=== PATIENT | female | born 1995 | race Caucasian/White ===

== ENCOUNTER 2017-07-23 14:09 | Emergency (ER) | payer OTHER, BC ==
[~2017-07-23] VITALS: Ht 157.5 cm; Wt 56.7 kg
[~2017-07-23 14:09] MED LIST: Ativan1 MG SL; CIPR500 PO; CLIN300 PO; CLOT10 SUSW; DULO60 PO; HYDACE5 PO; HYDHCL10 PO; IBUP600 PO; LAMICTAL; LAMO25 PO; LORA.5 PO; Lithium Carbon600 MG PO; NAPR500 PO; PRED20 PO; Prazosin HCl5 MG PO; QUET25 PO; RXHYDACE PO; SULTRIDS PO; TOPI25 PO; VENL25 PO; VIBRID PO; VIIBRYD20 MG PO; VILAZODONE 20 MG; [UNRECOGNIZED DRUG - OTHER] SC
[2017-07-23] MEDS ORDERED: Lithium Carbon600 MG PO (14:41)
[2017-07-23] MEDS ORDERED: Bupropion Xl150 MG PO (14:41)
[2017-07-23] MEDS ORDERED: Vanadom350 MG PO (14:41)
[2017-07-23 17:10] LABS: BASOPHILS ABSOLUTE AUTO 0.02 K/mm3 (0.00-0.23); BASOPHILS PERCENT AUTO 0 % (0-2); EOSINOPHILS ABSOLUTE AUTO 0.35 K/mm3 (0.00-0.68); EOSINOPHILS PERCENT AUTO 2 % (0-6); Hematocrit 42.6 % (33.0-51.0); Hemoglobin 14.6 g/dL (11.5-16.0); IMMATURE GRAN ABSOLUTE AUTO 0.08 K/mm3 (0.00-0.10); IMMATURE GRAN PERCENT AUTO 1 % (0-1); LYMPHOCYTES ABSOLUTE AUTO 3.26 K/mm3 (0.84-5.20); LYMPHOCYTES PERCENT AUTO 22 % (21-46); MONOCYTES ABSOLUTE AUTO 1.02 K/mm3 (0.16-1.47); MONOCYTES PERCENT AUTO 7 % (4-13); Mean Corpuscular HGB 31.5 pg (26.0-34.0); Mean Corpuscular HGB Conc 34.3 g/dL (31.5-36.5); Mean Corpuscular Volume 92 fL (80-100); Mean Platelet Volume 9.7 fL (9.1-12.4); NEUTROPHILS ABSOLUTE AUTO 9.98 K/mm3 (1.96-9.15); NEUTROPHILS PERCENT AUTO 68 % (41-73); Platelet Count 373 K/mm3 (150-400); RDW Coefficient Variation 11.8 % (11.7-14.2); Red Blood Cell Count 4.64 M/mm3 (3.80-5.20); White Blood Cell Count 14.71 K/mm3 (4.00-11.30)
[2017-07-23 17:28] LABS: Anion Gap 6 mmol/L (6-16); Blood Urea Nitrogen 17 mg/dL (8-24); Bun/Creatinine Ratio 22.1 (12.0-20.0); CO2, Blood 27 mmol/L (21-32); Calcium, Blood 9.3 mg/dL (8.5-10.1); Chloride, Blood 107 mmol/L (98-108); Creatinine, Blood 0.77 mg/dL (0.40-1.00); Glomerular Filtration Rate >60 (60-); Glucose, Blood 94 mg/dL (70-99); Potassium, Blood 3.3 mmol/L (3.5-5.5); Sodium, Blood 140 mmol/L (136-145)
[2017-07-23 17:37] LABS: Source, Urine Clean Catch
[2017-07-23 17:43] LABS: Appearance, Urine Hazy (Clear); Bilirubin, Urine Neg (Neg); Blood, Urine 1+ (Neg); Color, Urine Yellow (P-Yellow); Glucose Qualitative, Urine Neg (Neg); Ketones, Urine Neg (Neg); Leukocyte Esterase, Urine Neg (Neg); Nitrite, Urine Neg (Neg); Protein, Urine Neg (Neg); Urobilinogen, Urine NORM (Normal)
[2017-07-23 17:52] LABS: Amorphous Light (0-Heavy); Bacteria Mod /hpf; Red Blood Cells, Urine 0-2 /hpf (0-2); Squamous Epithelial Cells Mod /hpf (Few)
[2017-07-23] MEDS ORDERED: Zofran Odt8 MG SL (18:33)
[2017-07-23] MEDS ORDERED: Cephalexin500 MG PO (18:33)
[2017-07-23] MEDS ORDERED: Flagyl500 MG PO (18:33)
== END 2017-07-23 18:38 | disposition home or self-care (01) ==
LOC: ER 14:09
PROVIDERS: Emergency Medicine; Physician Assistant
DX: N76.0 Acute vaginitis (principal); B96.89 Other specified bacterial agents as the cause of diseases classified elsewhere; N39.0 Urinary tract infection, site not specified; R55 Syncope and collapse; Z88.2 Allergy status to sulfonamides; Z79.899 Other long term (current) drug therapy; Z90.89 Acquired absence of other organs
CPT/HCPCS: 36415; 80048; 81001; 81025; 85025; 87086; 93005; 93010; 96365; 96375; 99283; J0696; J2405; J7030

== ENCOUNTER → 2017-08-16 | Outpatient (CLI) | payer OTHER, BC ==
[~2017-08-16] MED LIST changes: +Bupropion Xl150 MG PO; +Cephalexin500 MG PO; +Flagyl500 MG PO; +Vanadom350 MG PO; +Zofran Odt4 MG SL; +Zofran Odt8 MG SL
== END | disposition home or self-care (01) ==
LOC: PLD 08:48 → LAB SHORT 08:48
DX: D22.62 Melanocytic nevi of left upper limb, including shoulder (principal)
CPT/HCPCS: 88305

== ENCOUNTER 2017-08-19 18:15 | Emergency (ER) | payer OTHER, BC ==
[~2017-08-19] VITALS: Ht 157.5 cm; Wt 54.4 kg
[~2017-08-19 18:15] MED LIST changes: -Zofran Odt4 MG SL
[2017-08-19 19:07] LABS: Source, Urine Voided
[2017-08-19 19:13] LABS: Appearance, Urine Clear (Clear); Bilirubin, Urine Neg (Neg); Blood, Urine 2+ (Neg); Color, Urine Yellow (P-Yellow); Glucose Qualitative, Urine Neg (Neg); Ketones, Urine Neg (Neg); Leukocyte Esterase, Urine 1+ (Neg); Nitrite, Urine Neg (Neg); Protein, Urine 1+ (Neg); Urobilinogen, Urine NORM (Normal)
[2017-08-19 19:20] LABS: Bacteria Few /hpf; Squamous Epithelial Cells Many /hpf (Few)
[2017-08-19] MEDS ORDERED: Zofran Odt4 MG SL (20:50)
== END 2017-08-19 20:52 | disposition home or self-care (01) ==
LOC: ER 18:15
PROVIDERS: Nurse Practitioner Family
DX: J11.1 Influenza due to unidentified influenza virus with other respiratory manifestations (principal); Z88.2 Allergy status to sulfonamides; Z79.899 Other long term (current) drug therapy; F31.9 Bipolar disorder, unspecified; F17.200 Nicotine dependence, unspecified, uncomplicated; Z90.49 Acquired absence of other specified parts of digestive tract
CPT/HCPCS: 81001; 87086; 99283

== ENCOUNTER → 2017-10-21 | Outpatient (CLI) | payer OTHER, BC ==
[~2017-10-21] MED LIST changes: +Zofran Odt4 MG SL
== END ==
LOC: LAB 17:44 → LAB SHORT 17:44
DX: N39.0 Urinary tract infection, site not specified (principal)
CPT/HCPCS: 87077; 87086; 87186

== ENCOUNTER → 2017-11-16 | Outpatient (CLI) | payer OTHER, BC ==
[2017-11-16 21:33] LABS: Candida species (DNA Probe) Negative (NEGATIVE); G. vaginalis (DNA Probe) Positive (NEGATIVE); T. vaginalis (DNA Probe) Negative (NEGATIVE)
== END | disposition home or self-care (01) ==
LOC: LAB SHORT 16:21 → LAB 16:21
PROVIDERS: Obstetrics & Gynecology
DX: Z01.419 Encounter for gynecological examination (general) (routine) without abnormal findings (principal); Z11.3 Encounter for screening for infections with a predominantly sexual mode of transmission; N89.8 Other specified noninflammatory disorders of vagina
CPT/HCPCS: 87480; 87510; 87660

== ENCOUNTER → 2018-01-06 | Outpatient (CLI) | payer OTHER, BC ==
[2018-01-06 20:40] LABS: Candida species (DNA Probe) Negative (NEGATIVE); G. vaginalis (DNA Probe) Positive (NEGATIVE); T. vaginalis (DNA Probe) Negative (NEGATIVE)
== END | disposition home or self-care (01) ==
LOC: LAB 10:15 → LAB SHORT 10:15
PROVIDERS: Obstetrics & Gynecology
DX: N89.8 Other specified noninflammatory disorders of vagina (principal)
CPT/HCPCS: 87480; 87510; 87660

== ENCOUNTER → 2018-09-25 | Outpatient (CLI) | payer OTHER, BC ==
[2018-09-28 03:07] LABS: CHLAMYDIA TRACHOMATIS, NAA Negative (Negative); NEISSERIA GONORRHOEAE, NAA Negative (Negative)
== END | disposition home or self-care (01) ==
LOC: LAB 09:30 → LAB SHORT 09:30
PROVIDERS: Advanced Practice Midwife
DX: Z11.3 Encounter for screening for infections with a predominantly sexual mode of transmission (principal)
CPT/HCPCS: 87491; 87591

== ENCOUNTER 2019-02-13 19:23 | Emergency (ER) | payer OTHER, BC ==
[~2019-02-13] VITALS: Ht 157.5 cm; Wt 61.2 kg
[2019-02-13] MEDS ORDERED: Norco 10-325 T1 EACH PO (19:45)
[2019-02-13] MEDS ORDERED: ALPR.5 PO (19:45)
[2019-02-13] MEDS ORDERED: AMLO5 PO (19:45)
[2019-02-13] MEDS ORDERED: LOSA25 PO (19:46)
[2019-02-13] MEDS ORDERED: FOLI1 PO (19:46)
[2019-02-13] MEDS ORDERED: ESZO1 (19:46)
[2019-02-13 20:19] LABS: BASOPHILS ABSOLUTE AUTO 0.06 K/mm3 (0.00-0.23); BASOPHILS PERCENT AUTO 1 % (0-2); EOSINOPHILS ABSOLUTE AUTO 0.32 K/mm3 (0.00-0.68); EOSINOPHILS PERCENT AUTO 4 % (0-6); Hematocrit 39.5 % (33.0-51.0); Hemoglobin 13.4 g/dL (11.5-16.0); IMMATURE GRAN ABSOLUTE AUTO 0.06 K/mm3 (0.00-0.10); IMMATURE GRAN PERCENT AUTO 1 % (0-1); LYMPHOCYTES ABSOLUTE AUTO 2.02 K/mm3 (0.84-5.20); LYMPHOCYTES PERCENT AUTO 24 % (21-46); MONOCYTES PERCENT AUTO 12 % (4-13); Mean Corpuscular HGB 29.9 pg (26.0-34.0); Mean Corpuscular HGB Conc 33.9 g/dL (31.5-36.5); Mean Corpuscular Volume 88 fL (80-100); Mean Platelet Volume 9.7 fL (9.1-12.4); NEUTROPHILS PERCENT AUTO 60 % (41-73); Platelet Count 295 K/mm3 (150-400); RDW Coefficient Variation 11.3 % (11.7-14.2); RDW Standard Deviation 36.4 fL (35.1-46.3); Red Blood Cell Count 4.48 M/mm3 (3.80-5.20); White Blood Cell Count 8.56 K/mm3 (4.00-11.30)
[2019-02-13 20:37] LABS: Alanine Aminotransfer (ALT/SGP 27 U/L (12-78); Albumin, Blood 3.7 g/dL (3.4-5.0); Albumin/Globulin Ratio 0.9 (0.8-1.8); Alk Phos 74 U/L (50-136); Anion Gap 8 mmol/L (6-16); Aspartate Aminotrans (AST/SGOT 17 U/L (12-37); Bilirubin, Total 0.1 mg/dL (0.1-1.0); Blood Urea Nitrogen 4 mg/dL (8-24); Bun/Creatinine Ratio 6.9 (12.0-20.0); CO2, Blood 23 mmol/L (21-32); Calcium, Blood 8.8 mg/dL (8.5-10.1); Chloride, Blood 104 mmol/L (98-108); Creatinine, Blood 0.58 mg/dL (0.40-1.00); Glomerular Filtration Rate >60 (60-); Glucose, Blood 140 mg/dL (70-99); Potassium, Blood 2.9 mmol/L (3.5-5.5); Sodium, Blood 135 mmol/L (136-145); Total Protein, Blood 7.7 g/dL (6.4-8.2)
[2019-02-13] MEDS ORDERED: BENZ100A PO (22:39)
[2019-02-13] MEDS ORDERED: CEPH500 PO (22:39)
== END 2019-02-13 23:32 | disposition home or self-care (01) ==
LOC: ER 19:23
PROVIDERS: Emergency Medicine
DX: J18.1 Lobar pneumonia, unspecified organism (principal); Z88.2 Allergy status to sulfonamides; Z79.899 Other long term (current) drug therapy; F31.9 Bipolar disorder, unspecified; F17.200 Nicotine dependence, unspecified, uncomplicated
CPT/HCPCS: 71046; 80053; 83690; 83735; 85025; 96365; 96375; 99283-25; J2405; J3475

== ENCOUNTER 2019-02-15 22:55 | Emergency (ER) | payer OTHER, BC ==
[~2019-02-15] VITALS: Ht 157.5 cm; Wt 61.2 kg
[~2019-02-15 22:55] MED LIST changes: +ALPR.5 PO; +AMLO5 PO; +BENZ100A PO; +CEPH500 PO; +ESZO1; +FOLI1 PO; +LOSA25 PO; +Norco 10-325 T1 EACH PO
[2019-02-15 23:29] LABS: BASOPHILS ABSOLUTE AUTO 0.06 K/mm3 (0.00-0.23); BASOPHILS PERCENT AUTO 1 % (0-2); EOSINOPHILS ABSOLUTE AUTO 0.46 K/mm3 (0.00-0.68); EOSINOPHILS PERCENT AUTO 5 % (0-6); Hematocrit 40.7 % (33.0-51.0); Hemoglobin 14.2 g/dL (11.5-16.0); IMMATURE GRAN ABSOLUTE AUTO 0.11 K/mm3 (0.00-0.10); IMMATURE GRAN PERCENT AUTO 1 % (0-1); LYMPHOCYTES PERCENT AUTO 33 % (21-46); MONOCYTES ABSOLUTE AUTO 0.85 K/mm3 (0.16-1.47); MONOCYTES PERCENT AUTO 10 % (4-13); Mean Corpuscular HGB 30.4 pg (26.0-34.0); Mean Corpuscular HGB Conc 34.9 g/dL (31.5-36.5); Mean Corpuscular Volume 87 fL (80-100); Mean Platelet Volume 9.6 fL (9.1-12.4); NEUTROPHILS ABSOLUTE AUTO 4.55 K/mm3 (1.96-9.15); NEUTROPHILS PERCENT AUTO 51 % (41-73); Platelet Count 368 K/mm3 (150-400); RDW Coefficient Variation 11.3 % (11.7-14.2); RDW Standard Deviation 36.2 fL (35.1-46.3); Red Blood Cell Count 4.67 M/mm3 (3.80-5.20); White Blood Cell Count 8.93 K/mm3 (4.00-11.30)
[2019-02-15 23:47] LABS: Alanine Aminotransfer (ALT/SGP 21 U/L (12-78); Albumin, Blood 3.8 g/dL (3.4-5.0); Albumin/Globulin Ratio 0.9 (0.8-1.8); Alk Phos 77 U/L (50-136); Anion Gap 6 mmol/L (6-16); Aspartate Aminotrans (AST/SGOT 18 U/L (12-37); Bilirubin, Total 0.2 mg/dL (0.1-1.0); Blood Urea Nitrogen 7 mg/dL (8-24); Bun/Creatinine Ratio 9.8 (12.0-20.0); CO2, Blood 28 mmol/L (21-32); Calcium, Blood 9.5 mg/dL (8.5-10.1); Chloride, Blood 104 mmol/L (98-108); Creatinine, Blood 0.72 mg/dL (0.40-1.00); Globulin, Blood 4.1 g/dL (2.2-4.0); Glomerular Filtration Rate >60 (60-); Glucose, Blood 105 mg/dL (70-99); Potassium, Blood 3.6 mmol/L (3.5-5.5); Sodium, Blood 138 mmol/L (136-145); Total Protein, Blood 7.9 g/dL (6.4-8.2)
[2019-02-16] MEDS ORDERED: Zithromax250 MG PO (01:19)
[2019-02-16] MEDS ORDERED: PROM25 PO (01:20)
== END 2019-02-16 01:45 | disposition home or self-care (01) ==
LOC: ER 22:55
PROVIDERS: Emergency Medicine
DX: J18.9 Pneumonia, unspecified organism (principal); F31.9 Bipolar disorder, unspecified; I10 Essential (primary) hypertension; F17.200 Nicotine dependence, unspecified, uncomplicated; Z88.2 Allergy status to sulfonamides
CPT/HCPCS: 80053; 85025; 96361; 96374; 99283-25; J1885; J7120

== ENCOUNTER 2019-03-12 21:10 | Emergency (ER) | payer OTHER, BC ==
[~2019-03-12] VITALS: Ht 157.5 cm; Wt 67.1 kg
[~2019-03-12 21:10] MED LIST changes: +PROM25 PO; +Zithromax250 MG PO
== END 2019-03-12 22:22 | disposition home or self-care (01) ==
LOC: ER 21:10
DX: L50.0 Allergic urticaria (principal); Z88.2 Allergy status to sulfonamides; Z88.5 Allergy status to narcotic agent; Z79.899 Other long term (current) drug therapy; I10 Essential (primary) hypertension; Z87.891 Personal history of nicotine dependence
CPT/HCPCS: 96374; 96375; 99283-25; J1200; J2930

== ENCOUNTER → 2019-04-16 | Outpatient (CLI) | payer OTHER, BC | LOC: LAB 17:25 → LAB SHORT 17:25 | DX: E04.1 Nontoxic single thyroid nodule (principal) | CPT/HCPCS: 84443 ==

== ENCOUNTER 2019-09-29 17:47 | Emergency (ER) | payer OTHER, BC ==
[~2019-09-29] VITALS: Ht 157.5 cm; Wt 63.5 kg
[2019-09-29] MEDS ORDERED: Baclofen10 MG PO (18:43)
== END 2019-09-29 18:58 | disposition home or self-care (01) ==
LOC: ER 17:47
DX: M62.830 Muscle spasm of back (principal); M62.838 Other muscle spasm; I10 Essential (primary) hypertension; Z88.2 Allergy status to sulfonamides; Z88.5 Allergy status to narcotic agent; Z79.899 Other long term (current) drug therapy; V43.62XA Car passenger injured in collision with other type car in traffic accident, initial encounter
CPT/HCPCS: 72040; 72100; 99283-25

== ENCOUNTER → 2020-05-19 | Outpatient (CLI) | payer OTHER, BC ==
[~2020-05-19] MED LIST changes: +Baclofen10 MG PO
[2020-05-19 16:15] LABS: Microalbumin, Urine Quant. 6.59 mg/L (0.000-20.000); Protein, Urine Quantitative 6.4 mg/dL (0.0-11.9)
== END ==
LOC: LAB 09:07 → LAB SHORT 09:07
PROVIDERS: Internal Medicine Nephrology
DX: E55.9 Vitamin D deficiency, unspecified (principal); N25.81 Secondary hyperparathyroidism of renal origin; E78.00 Pure hypercholesterolemia, unspecified; N18.1 Chronic kidney disease, stage 1; D63.1 Anemia in chronic kidney disease; R80.9 Proteinuria, unspecified; R76.9 Abnormal immunological finding in serum, unspecified; R94.5 Abnormal results of liver function studies; R94.6 Abnormal results of thyroid function studies
CPT/HCPCS: 81050; 82043; 82570; 84156

== ENCOUNTER → 2020-06-26 | Outpatient (CLI) | payer OTHER ==
[~2020-06-26] MED LIST changes: +ASPI81CH PO; +BUSP10 PO; +DESV50 PO; +Folic Acid0.8 MG PO; +LABE100 PO; +LITH300C PO; +ONDA4ODT MM; +OXYC5 PO; +POTCHL20ER PO; +PRED10 PO; +PRENATAL TABLE1 EAC2 PO; +PROCARDIA PO; +TRAZ50 PO; +VITAMIN B-625 MG PO
[2020-06-28 09:10] LABS: HPV 16 Negative (Negative); HPV 18 Negative (Negative); HPV OTHER HR TYPES Positive (Negative)
== END | disposition home or self-care (01) ==
LOC: LAB SHORT 10:27 → LAB 10:27
PROVIDERS: Obstetrics & Gynecology
DX: Z01.419 Encounter for gynecological examination (general) (routine) without abnormal findings (principal)
CPT/HCPCS: 87624; 87625; G0123

== ENCOUNTER → 2020-06-26 | Outpatient (CLI) | payer OTHER ==
[2020-06-26 15:54] LABS: Source, Urine Clean Catch
[2020-06-26 16:49] LABS: Appearance, Urine Clear (Clear); Bilirubin, Urine Neg (Neg); Blood, Urine Neg (Neg); Glucose Qualitative, Urine 1+ (Neg); Ketones, Urine 1+ (Neg); Leukocyte Esterase, Urine 1+ (Neg); Nitrite, Urine Neg (Neg); Protein, Urine Neg (Neg); Urobilinogen, Urine NORM (Normal)
[2020-06-26 17:05] LABS: Color, Urine Pale Yellow (P-Yellow)
[2020-06-26 17:07] LABS: Bacteria Few /hpf; Red Blood Cells, Urine 0-2 /hpf (0-2); Squamous Epithelial Cells Few /hpf (Few)
== END | disposition home or self-care (01) ==
LOC: LAB 15:52 → LAB SHORT 15:52
PROVIDERS: Obstetrics & Gynecology
DX: O09.90 Supervision of high risk pregnancy, unspecified, unspecified trimester (principal)
CPT/HCPCS: 81001; 87086

== ENCOUNTER 2020-07-08 20:26 | Emergency (ER) | payer OTHER ==
[~2020-07-08] VITALS: Ht 157.5 cm; Wt 62.1 kg
[~2020-07-08 20:26] MED LIST changes: -ASPI81CH PO; -BUSP10 PO; -DESV50 PO; -Folic Acid0.8 MG PO; -LABE100 PO; -LITH300C PO; -ONDA4ODT MM; -OXYC5 PO; -POTCHL20ER PO; -PRED10 PO; -PRENATAL TABLE1 EAC2 PO; -PROCARDIA PO; -TRAZ50 PO; -VITAMIN B-625 MG PO
[2020-07-08] MEDS ORDERED: VITAMIN B-625 MG PO (20:50)
[2020-07-08 21:12] LABS: BASOPHILS ABSOLUTE AUTO 0.05 K/mm3 (0.00-0.23); BASOPHILS PERCENT AUTO 0 % (0-2); EOSINOPHILS ABSOLUTE AUTO 0.23 K/mm3 (0.00-0.68); EOSINOPHILS PERCENT AUTO 1 % (0-6); Hematocrit 37.4 % (33.0-51.0); Hemoglobin 12.5 g/dL (11.5-16.0); IMMATURE GRAN ABSOLUTE AUTO 0.12 K/mm3 (0.00-0.10); IMMATURE GRAN PERCENT AUTO 1 % (0-1); LYMPHOCYTES ABSOLUTE AUTO 2.79 K/mm3 (0.84-5.20); LYMPHOCYTES PERCENT AUTO 16 % (21-46); MONOCYTES PERCENT AUTO 6 % (4-13); Mean Corpuscular HGB 28.9 pg (26.0-34.0); Mean Corpuscular HGB Conc 33.4 g/dL (31.5-36.5); Mean Corpuscular Volume 86 fL (80-100); Mean Platelet Volume 9.8 fL (9.1-12.4); NEUTROPHILS ABSOLUTE AUTO 12.97 K/mm3 (1.96-9.15); NEUTROPHILS PERCENT AUTO 76 % (41-73); Platelet Count 296 K/mm3 (150-400); RDW Coefficient Variation 11.3 % (11.7-14.2); RDW Standard Deviation 35.8 fL (35.1-46.3); Red Blood Cell Count 4.33 M/mm3 (3.80-5.20); White Blood Cell Count 17.16 K/mm3 (4.00-11.30)
[2020-07-08 21:29] LABS: Alanine Aminotransfer (ALT/SGP 13 U/L (12-78); Albumin, Blood 3.4 g/dL (3.4-5.0); Albumin/Globulin Ratio 0.9 (0.8-1.8); Alk Phos 54 U/L (50-136); Anion Gap 7 mmol/L (6-16); Aspartate Aminotrans (AST/SGOT 5 U/L (12-37); Bilirubin, Total 0.2 mg/dL (0.1-1.0); Blood Urea Nitrogen 9 mg/dL (8-24); Bun/Creatinine Ratio 14.4 (12.0-20.0); CO2, Blood 28 mmol/L (21-32); Calcium, Blood 9.6 mg/dL (8.5-10.1); Chloride, Blood 103 mmol/L (98-108); Creatinine, Blood 0.62 mg/dL (0.40-1.00); Globulin, Blood 3.9 g/dL (2.2-4.0); Glomerular Filtration Rate >60 (60-); Glucose, Blood 100 mg/dL (70-99); Sodium, Blood 138 mmol/L (136-145); Total Protein, Blood 7.3 g/dL (6.4-8.2)
[2020-07-08] MEDS ORDERED: POTCHL20ER PO (21:54)
[2020-07-08] MEDS ORDERED: PROM25 PO (21:54)
== END 2020-07-08 22:21 | disposition home or self-care (01) ==
LOC: ER 20:26
PROVIDERS: Physician Assistant
DX: O21.1 Hyperemesis gravidarum with metabolic disturbance (principal); O16.2 Unspecified maternal hypertension, second trimester; Z3A.14 14 weeks gestation of pregnancy
CPT/HCPCS: 36415; 80053; 85025; 96374; 99284-25; A9270; J2550; J7030

== ENCOUNTER 2020-08-07 11:10 | Emergency (ER) | payer OTHER ==
[~2020-08-07] VITALS: Ht 157.5 cm; Wt 65.8 kg
[~2020-08-07 11:10] MED LIST changes: +ASPI81CH PO; +Folic Acid0.8 MG PO; +LABE100 PO; +LITH300C PO; +POTCHL20ER PO; +PRED10 PO; +PRENATAL TABLE1 EAC2 PO; +VITAMIN B-625 MG PO
[2020-08-07 11:56] LABS: BASOPHILS ABSOLUTE AUTO 0.06 K/mm3 (0.00-0.23); BASOPHILS PERCENT AUTO 0 % (0-2); EOSINOPHILS ABSOLUTE AUTO 0.25 K/mm3 (0.00-0.68); EOSINOPHILS PERCENT AUTO 1 % (0-6); Hematocrit 37.5 % (33.0-51.0); Hemoglobin 12.6 g/dL (11.5-16.0); IMMATURE GRAN ABSOLUTE AUTO 0.25 K/mm3 (0.00-0.10); IMMATURE GRAN PERCENT AUTO 1 % (0-1); LYMPHOCYTES ABSOLUTE AUTO 2.36 K/mm3 (0.84-5.20); LYMPHOCYTES PERCENT AUTO 14 % (21-46); MONOCYTES ABSOLUTE AUTO 1.04 K/mm3 (0.16-1.47); MONOCYTES PERCENT AUTO 6 % (4-13); Mean Corpuscular HGB 29.3 pg (26.0-34.0); Mean Corpuscular HGB Conc 33.6 g/dL (31.5-36.5); Mean Corpuscular Volume 87 fL (80-100); Mean Platelet Volume 9.9 fL (9.1-12.4); NEUTROPHILS ABSOLUTE AUTO 13.43 K/mm3 (1.96-9.15); NEUTROPHILS PERCENT AUTO 77 % (41-73); Platelet Count 333 K/mm3 (150-400); RDW Coefficient Variation 12.4 % (11.7-14.2); RDW Standard Deviation 38.8 fL (35.1-46.3); White Blood Cell Count 17.39 K/mm3 (4.00-11.30)
[2020-08-07 12:35] LABS: Alanine Aminotransfer (ALT/SGP 17 U/L (12-78); Albumin, Blood 3.4 g/dL (3.4-5.0); Albumin/Globulin Ratio 0.8 (0.8-1.8); Alk Phos 57 U/L (50-136); Anion Gap 6 mmol/L (6-16); Aspartate Aminotrans (AST/SGOT 20 U/L (12-37); Bilirubin, Total 0.4 mg/dL (0.1-1.0); Blood Urea Nitrogen 7 mg/dL (8-24); Bun/Creatinine Ratio 11.7 (12.0-20.0); CO2, Blood 25 mmol/L (21-32); Chloride, Blood 106 mmol/L (98-108); Globulin, Blood 4.1 g/dL (2.2-4.0); Glomerular Filtration Rate >60 (60-); Glucose, Blood 83 mg/dL (70-99); Potassium, Blood 3.5 mmol/L (3.5-5.5); Sodium, Blood 137 mmol/L (136-145); Total Protein, Blood 7.5 g/dL (6.4-8.2)
[2020-08-07 12:38] LABS: Beta HCG, Quantitative, Serum 18421 mIU/mL (0-3)
[2020-08-09] MEDS ORDERED: PROCARDIA PO (09:45)
[2020-08-09] MEDS ORDERED: ONDA4ODT MM (09:45)
== END 2020-08-07 13:51 | disposition home or self-care (01) ==
LOC: ER 11:10
PROVIDERS: Emergency Medicine
DX: O21.9 Vomiting of pregnancy, unspecified (principal); O99.891 Other specified diseases and conditions complicating pregnancy; R51.9 Headache, unspecified; Z3A.19 19 weeks gestation of pregnancy; Z88.2 Allergy status to sulfonamides; Z88.5 Allergy status to narcotic agent; Z79.899 Other long term (current) drug therapy; Z79.82 Long term (current) use of aspirin; Z87.891 Personal history of nicotine dependence
CPT/HCPCS: 36415; 80053; 84702; 85025; 86900; 86901; 99284

== ENCOUNTER 2020-08-09 09:17 | Observation (INO) | payer OTHER ==
[~2020-08-09] VITALS: Ht 157.5 cm; Wt 65.0 kg
[2020-08-09] MEDS ORDERED: ONDA4ODT MM ×2 (09:45)
[2020-08-09] MEDS ORDERED: PROCARDIA PO ×2 (09:45)
--- NOTE | 2020-08-09 12:31 | NUR ---
PT UP AMBULATING THROUGH HALLWAY AND OUTSIDE FOR FRESH AIR.
--- NOTE | 2020-08-09 15:04 | NUR ---
pt heading outside for another walk
--- NOTE | 2020-08-09 15:45 | NUR ---
PT BACK OUTSIDE, STATES SHE IS GOING TO GET FOOD HER FRIEND BROUGHT HER.
--- NOTE | 2020-08-09 16:00 | NUR ---
FHTS DOPPLERED AT 145BPM, MOVEMENT HEARD.
[2020-08-09 16:30] LABS: Influenza A, PCR Negative (NEGATIVE); SARS-Cov-2 (COVID-19) PCR, MMC Negative (NEGATIVE)
--- NOTE | 2020-08-09 16:30 | NUR ---
pt back from getting food from her friend/walking. States she did eat part of a sandwich while she was out there. Will check [facility] CBG before she eats next time.
[2020-08-09 16:31] LABS: Influenza B, PCR Negative (NEGATIVE); Resp Syncytial Virus, PCR Negative (NEGATIVE)
--- NOTE | 2020-08-10 10:55 | NUR ---
PT GIVEN WRITTEN AND VERBAL D/C INSTRUCTIONS. EDUCATED ON NEW RX ORDERS AND 'S ORDER TO ONLY CHECK BP ONCE DAILY, UNLESS SYMPTOMATIC. EDUCATION PROVIDED ON HTN IN PG. PT STATES UNDERSTANDING. NEW RX CALLED INTO [facility]. PT TO FOLLOW UP WITH IN OFFICE SCHEDULED, BUT WILL CALL OFFICE IF BPs REMAIN HIGHER THAN PARAMATERS. 24HOUR URINE TO LAB. TO F/U ON RESULTS ON OUTPT BASIS.
[2020-08-10 12:14] LABS: Protein, Urine Quantitative 5.4 mg/dL (0.0-11.9)
[2020-08-10 12:19] LABS: Creatinine Urine 15.9 mg/dL (27.00-270.00)
[2020-08-13 13:11] LABS: DOPAMINE, URINE 23 ug/L (Undefined)
[2020-08-13 17:11] LABS: METANEPHRINE, UR <10 ug/L (Undefined)
[2020-08-27 01:08] LABS: ALDOS/RENIN RATIO 1.5 (0.0-30.0)
== END 2020-08-10 10:53 | disposition home or self-care (01) ==
LOC: BC 09:17
PROVIDERS: ADMIT Family Medicine
DX: O10.212 Pre-existing hypertensive chronic kidney disease complicating pregnancy, second trimester (principal); O24.912 Unspecified diabetes mellitus in pregnancy, second trimester; O99.342 Other mental disorders complicating pregnancy, second trimester; I12.9 Hypertensive chronic kidney disease with stage 1 through stage 4 chronic kidney disease, or unspecified chronic kidney disease; N18.1 Chronic kidney disease, stage 1; F31.9 Bipolar disorder, unspecified; E55.9 Vitamin D deficiency, unspecified; Z3A.18 18 weeks gestation of pregnancy; Z87.891 Personal history of nicotine dependence; Z20.822 Contact with and (suspected) exposure to COVID-19
CPT/HCPCS: 0241U; 36415; 81050; 82088; 82384; 82530; 82533; 82570; 82947; 83835; 84156; 84244; 84443; A9270; G0378

== ENCOUNTER 2020-10-29 21:44 | Inpatient (IN) | payer OTHER ==
[~2020-10-29] VITALS: Ht 157.5 cm; Wt 73.1 kg
[~2020-10-29 21:44] MED LIST changes: +ONDA4ODT MM; +PROCARDIA PO
[2020-10-29 22:31] LABS: BASOPHILS ABSOLUTE AUTO 0.11 K/mm3 (0.00-0.23); BASOPHILS PERCENT AUTO 1 % (0-2); EOSINOPHILS ABSOLUTE AUTO 0.45 K/mm3 (0.00-0.68); EOSINOPHILS PERCENT AUTO 2 % (0-6); Hematocrit 31.4 % (33.0-51.0); Hemoglobin 10.4 g/dL (11.5-16.0); IMMATURE GRAN ABSOLUTE AUTO 1.01 K/mm3 (0.00-0.10); IMMATURE GRAN PERCENT AUTO 5 % (0-1); LYMPHOCYTES ABSOLUTE AUTO 3.15 K/mm3 (0.84-5.20); LYMPHOCYTES PERCENT AUTO 15 % (21-46); MONOCYTES ABSOLUTE AUTO 1.77 K/mm3 (0.16-1.47); MONOCYTES PERCENT AUTO 9 % (4-13); Mean Corpuscular HGB 28.6 pg (26.0-34.0); Mean Corpuscular HGB Conc 33.1 g/dL (31.5-36.5); Mean Corpuscular Volume 86 fL (80-100); Mean Platelet Volume 10.2 fL (9.1-12.4); NEUTROPHILS ABSOLUTE AUTO 14.03 K/mm3 (1.96-9.15); NEUTROPHILS PERCENT AUTO 68 % (41-73); Platelet Count 291 K/mm3 (150-400); Red Blood Cell Count 3.64 M/mm3 (3.80-5.20); White Blood Cell Count 20.52 K/mm3 (4.00-11.30)
[2020-10-29 22:54] LABS: Alanine Aminotransfer (ALT/SGP 18 U/L (12-78); Albumin, Blood 2.8 g/dL (3.4-5.0); Albumin/Globulin Ratio 0.7 (0.8-1.8); Alk Phos 137 U/L (50-136); Anion Gap 8 mmol/L (6-16); Aspartate Aminotrans (AST/SGOT 9 U/L (12-37); Bilirubin, Total 0.2 mg/dL (0.1-1.0); Blood Urea Nitrogen 9 mg/dL (8-24); Bun/Creatinine Ratio 14.3 (12.0-20.0); CO2, Blood 23 mmol/L (21-32); Calcium, Blood 8.6 mg/dL (8.5-10.1); Chloride, Blood 108 mmol/L (98-108); Creatinine, Blood 0.63 mg/dL (0.40-1.00); Glomerular Filtration Rate >60 (60-); Glucose, Blood 104 mg/dL (70-99); Potassium, Blood 3.5 mmol/L (3.5-5.5); Sodium, Blood 139 mmol/L (136-145); Total Protein, Blood 6.8 g/dL (6.4-8.2); Troponin I <0.015 ng/mL (0.000-0.040)
[2020-10-29 23:45] LABS: Influenza A, PCR NEGATIVE (NEGATIVE); Influenza B, PCR NEGATIVE (NEGATIVE); Resp Syncytial Virus, PCR NEGATIVE (NEGATIVE); SARS-Cov-2 (COVID-19) PCR, MMC NEGATIVE (NEGATIVE)
[2020-10-30 05:46] LABS: BASOPHILS ABSOLUTE AUTO 0.12 K/mm3 (0.00-0.23); BASOPHILS PERCENT AUTO 1 % (0-2); EOSINOPHILS ABSOLUTE AUTO 0.43 K/mm3 (0.00-0.68); EOSINOPHILS PERCENT AUTO 3 % (0-6); Hematocrit 29.7 % (33.0-51.0); Hemoglobin 9.8 g/dL (11.5-16.0); IMMATURE GRAN ABSOLUTE AUTO 0.86 K/mm3 (0.00-0.10); IMMATURE GRAN PERCENT AUTO 5 % (0-1); LYMPHOCYTES ABSOLUTE AUTO 2.23 K/mm3 (0.84-5.20); LYMPHOCYTES PERCENT AUTO 13 % (21-46); MONOCYTES ABSOLUTE AUTO 1.42 K/mm3 (0.16-1.47); MONOCYTES PERCENT AUTO 9 % (4-13); Mean Corpuscular HGB 29.1 pg (26.0-34.0); Mean Corpuscular Volume 88 fL (80-100); NEUTROPHILS ABSOLUTE AUTO 11.53 K/mm3 (1.96-9.15); NEUTROPHILS PERCENT AUTO 70 % (41-73); Platelet Count 261 K/mm3 (150-400); RDW Coefficient Variation 12.1 % (11.7-14.2); RDW Standard Deviation 38.6 fL (35.1-46.3); Red Blood Cell Count 3.37 M/mm3 (3.80-5.20); White Blood Cell Count 16.59 K/mm3 (4.00-11.30)
--- NOTE | 2020-10-30 09:00 | NUR ---
ASSUMED CARE AT 073. PATIENT RESTING BUT WOKE WHEN I ENTERED ROOM. VSS. ASSESSMENT UNCHANGED FROM PREVIOUS SHIFT. PLAN OF CARE DISCUSSED WITH PATIENT
--- NOTE | 2020-10-30 10:22 | NUR ---
Echocardiogram completed.
== END 2020-10-30 12:25 | disposition home or self-care (01) | DRG 832 ==
LOC: OBS 21:44 → BC 21:44 → OBS 10-30 00:08 → BC 10-30 00:11
PROVIDERS: ADMIT Obstetrics & Gynecology
PROC: 4A1HX4Z Monitoring of Products of Conception, Cardiac Electrical Activity, External Approach (ICD-10-PCS; principal; 2020-10-30)
DX: O10.913 Unspecified pre-existing hypertension complicating pregnancy, third trimester (principal); N25.81 Secondary hyperparathyroidism of renal origin; Z3A.30 30 weeks gestation of pregnancy; Z20.822 Contact with and (suspected) exposure to COVID-19; O24.419 Gestational diabetes mellitus in pregnancy, unspecified control; O99.343 Other mental disorders complicating pregnancy, third trimester; F31.9 Bipolar disorder, unspecified; O99.283 Endocrine, nutritional and metabolic diseases complicating pregnancy, third trimester; N18.1 Chronic kidney disease, stage 1; F60.3 Borderline personality disorder; R06.02 Shortness of breath; R07.89 Other chest pain; O99.891 Other specified diseases and conditions complicating pregnancy; I12.9 Hypertensive chronic kidney disease with stage 1 through stage 4 chronic kidney disease, or unspecified chronic kidney disease; F43.10 Post-traumatic stress disorder, unspecified; E55.9 Vitamin D deficiency, unspecified; Z90.89 Acquired absence of other organs; Z87.891 Personal history of nicotine dependence; Z88.5 Allergy status to narcotic agent; Z88.2 Allergy status to sulfonamides
CPT/HCPCS: 0241U; 36415; 59025; 71046; 80053; 82947; 83880; 84484; 85025; 93005; 93010; 93306; A9270

== ENCOUNTER → 2020-10-30 | Outpatient (CLI) | payer OTHER | LOC: LAB SHORT 08:59 | PROVIDERS: Obstetrics & Gynecology | DX: R80.9 Proteinuria, unspecified (principal) | CPT/HCPCS: 81050; 84156 ==

== ENCOUNTER → 2020-11-05 | Outpatient (CLI) | payer OTHER | END | disposition home or self-care (01) | LOC: LAB SHORT 11:00 | DX: O99.891 Other specified diseases and conditions complicating pregnancy (principal) | CPT/HCPCS: 87081; 87150 ==

== ENCOUNTER 2020-12-09 16:15 | Inpatient (IN) | payer OTHER ==
[~2020-12-09] VITALS: Ht 157.5 cm; Wt 75.6 kg
[2020-12-09] MEDS ORDERED: LABE100 PO (16:47)
[2020-12-09] MEDS ORDERED: LITH300C PO (16:47)
[2020-12-09] MEDS ORDERED: DESV50 PO (16:49)
[2020-12-09 17:23] LABS: BASOPHILS ABSOLUTE AUTO 0.06 K/mm3 (0.00-0.23); BASOPHILS PERCENT AUTO 0 % (0-2); EOSINOPHILS ABSOLUTE AUTO 0.33 K/mm3 (0.00-0.68); EOSINOPHILS PERCENT AUTO 2 % (0-6); Hematocrit 31.8 % (33.0-51.0); Hemoglobin 10.4 g/dL (11.5-16.0); IMMATURE GRAN ABSOLUTE AUTO 0.29 K/mm3 (0.00-0.10); IMMATURE GRAN PERCENT AUTO 2 % (0-1); LYMPHOCYTES ABSOLUTE AUTO 1.97 K/mm3 (0.84-5.20); LYMPHOCYTES PERCENT AUTO 13 % (21-46); MONOCYTES ABSOLUTE AUTO 1.42 K/mm3 (0.16-1.47); MONOCYTES PERCENT AUTO 9 % (4-13); Mean Corpuscular HGB 26.8 pg (26.0-34.0); Mean Corpuscular HGB Conc 32.7 g/dL (31.5-36.5); Mean Corpuscular Volume 82 fL (80-100); Mean Platelet Volume 10.5 fL (9.1-12.4); NEUTROPHILS ABSOLUTE AUTO 11.16 K/mm3 (1.96-9.15); NEUTROPHILS PERCENT AUTO 73 % (41-73); Platelet Count 322 K/mm3 (150-400); RDW Coefficient Variation 12.9 % (11.7-14.2); RDW Standard Deviation 38.7 fL (35.1-46.3); Red Blood Cell Count 3.88 M/mm3 (3.80-5.20); White Blood Cell Count 15.23 K/mm3 (4.00-11.30)
[2020-12-09] MEDS ORDERED: TRAZ50 PO (17:37)
[2020-12-09 17:38] LABS: SARS-Cov-2 (COVID-19) PCR, MMC NEGATIVE (NEGATIVE)
[2020-12-09] MEDS ORDERED: BUSP10 PO (17:38)
[2020-12-09 18:50] LABS: Alanine Aminotransfer (ALT/SGP 18 U/L (12-78); Albumin, Blood 2.7 g/dL (3.4-5.0); Albumin/Globulin Ratio 0.7 (0.8-1.8); Alk Phos 277 U/L (50-136); Anion Gap 7 mmol/L (6-16); Aspartate Aminotrans (AST/SGOT 13 U/L (12-37); Bilirubin, Total 0.2 mg/dL (0.1-1.0); Blood Urea Nitrogen 13 mg/dL (8-24); Bun/Creatinine Ratio 14.4 (12.0-20.0); CO2, Blood 22 mmol/L (21-32); Calcium, Blood 9.2 mg/dL (8.5-10.1); Chloride, Blood 108 mmol/L (98-108); Globulin, Blood 3.9 g/dL (2.2-4.0); Glomerular Filtration Rate >60 (60-); Glucose, Blood 81 mg/dL (70-99); Potassium, Blood 3.6 mmol/L (3.5-5.5); Sodium, Blood 137 mmol/L (136-145); Total Protein, Blood 6.6 g/dL (6.4-8.2)
[2020-12-10 10:52] LABS: BASOPHILS ABSOLUTE AUTO 0.06 K/mm3 (0.00-0.23); BASOPHILS PERCENT AUTO 1 % (0-2); EOSINOPHILS ABSOLUTE AUTO 0.34 K/mm3 (0.00-0.68); EOSINOPHILS PERCENT AUTO 3 % (0-6); Hemoglobin 10.5 g/dL (11.5-16.0); IMMATURE GRAN ABSOLUTE AUTO 0.27 K/mm3 (0.00-0.10); IMMATURE GRAN PERCENT AUTO 2 % (0-1); LYMPHOCYTES ABSOLUTE AUTO 1.69 K/mm3 (0.84-5.20); LYMPHOCYTES PERCENT AUTO 13 % (21-46); MONOCYTES ABSOLUTE AUTO 1.07 K/mm3 (0.16-1.47); MONOCYTES PERCENT AUTO 8 % (4-13); Mean Corpuscular HGB Conc 32.8 g/dL (31.5-36.5); Mean Corpuscular Volume 82 fL (80-100); Mean Platelet Volume 10.6 fL (9.1-12.4); NEUTROPHILS ABSOLUTE AUTO 9.31 K/mm3 (1.96-9.15); NEUTROPHILS PERCENT AUTO 73 % (41-73); Platelet Count 312 K/mm3 (150-400); RDW Coefficient Variation 12.9 % (11.7-14.2); RDW Standard Deviation 38.5 fL (35.1-46.3); Red Blood Cell Count 3.89 M/mm3 (3.80-5.20); White Blood Cell Count 12.74 K/mm3 (4.00-11.30)
[2020-12-10 11:12] LABS: Alanine Aminotransfer (ALT/SGP 17 U/L (12-78); Albumin, Blood 2.6 g/dL (3.4-5.0); Albumin/Globulin Ratio 0.7 (0.8-1.8); Alk Phos 266 U/L (50-136); Anion Gap 8 mmol/L (6-16); Aspartate Aminotrans (AST/SGOT 11 U/L (12-37); Bilirubin, Total 0.2 mg/dL (0.1-1.0); Blood Urea Nitrogen 14 mg/dL (8-24); Bun/Creatinine Ratio 15.3 (12.0-20.0); CO2, Blood 20 mmol/L (21-32); Chloride, Blood 108 mmol/L (98-108); Creatinine, Blood 0.92 mg/dL (0.40-1.00); Globulin, Blood 3.8 g/dL (2.2-4.0); Glomerular Filtration Rate >60 (60-); Glucose, Blood 95 mg/dL (70-99); Potassium, Blood 3.9 mmol/L (3.5-5.5); Sodium, Blood 136 mmol/L (136-145); Total Protein, Blood 6.4 g/dL (6.4-8.2)
--- NOTE | 2020-12-10 17:38 | NUR ---
PT CALLED RN TO ROOM FOR WATER AND TO LET RN KNOW HER HANDS FEEL A LITTLE SWOLLEN, STATES SHE HAS NOT HAD EXTRA SODIUM TODAY. WILL PASS ON TO ON COMING SHIFT. PT DID NOT LIKE THE DINNER, SO HER SO WILL GO GET DINNER FROM THE [place]. WILL DO 1 HOUR PP CBG AFTER SHE EATS. NO OTHER COMPLAINTS AT THIS TIME.
[2020-12-11 05:31] LABS: BASOPHILS ABSOLUTE AUTO 0.06 K/mm3 (0.00-0.23); BASOPHILS PERCENT AUTO 1 % (0-2); EOSINOPHILS ABSOLUTE AUTO 0.42 K/mm3 (0.00-0.68); EOSINOPHILS PERCENT AUTO 3 % (0-6); Hematocrit 33.5 % (33.0-51.0); Hemoglobin 10.5 g/dL (11.5-16.0); IMMATURE GRAN PERCENT AUTO 2 % (0-1); LYMPHOCYTES PERCENT AUTO 16 % (21-46); MONOCYTES ABSOLUTE AUTO 1.39 K/mm3 (0.16-1.47); MONOCYTES PERCENT AUTO 11 % (4-13); Mean Corpuscular HGB 26.6 pg (26.0-34.0); Mean Corpuscular HGB Conc 31.3 g/dL (31.5-36.5); Mean Corpuscular Volume 85 fL (80-100); Mean Platelet Volume 10.5 fL (9.1-12.4); NEUTROPHILS ABSOLUTE AUTO 8.12 K/mm3 (1.96-9.15); NEUTROPHILS PERCENT AUTO 66 % (41-73); Platelet Count 304 K/mm3 (150-400); RDW Coefficient Variation 12.8 % (11.7-14.2); RDW Standard Deviation 39.3 fL (35.1-46.3); Red Blood Cell Count 3.94 M/mm3 (3.80-5.20); White Blood Cell Count 12.29 K/mm3 (4.00-11.30)
[2020-12-11 05:49] LABS: Alanine Aminotransfer (ALT/SGP 17 U/L (12-78); Albumin, Blood 2.6 g/dL (3.4-5.0); Albumin/Globulin Ratio 0.7 (0.8-1.8); Alk Phos 277 U/L (50-136); Anion Gap 5 mmol/L (6-16); Aspartate Aminotrans (AST/SGOT 6 U/L (12-37); Bilirubin, Total 0.2 mg/dL (0.1-1.0); Blood Urea Nitrogen 16 mg/dL (8-24); Bun/Creatinine Ratio 14.8 (12.0-20.0); CO2, Blood 23 mmol/L (21-32); Calcium, Blood 9.4 mg/dL (8.5-10.1); Chloride, Blood 108 mmol/L (98-108); Creatinine, Blood 1.08 mg/dL (0.40-1.00); Globulin, Blood 3.7 g/dL (2.2-4.0); Glomerular Filtration Rate >60 (60-); Glucose, Blood 81 mg/dL (70-99); Potassium, Blood 3.9 mmol/L (3.5-5.5); Sodium, Blood 136 mmol/L (136-145); Total Protein, Blood 6.3 g/dL (6.4-8.2)
[2020-12-11 09:46] LABS: Lithium 1.03 mmol/L (0.60-1.20)
--- NOTE | 2020-12-11 19:29 | NUR ---
report to cb rn
[2020-12-12 05:34] LABS: BASOPHILS ABSOLUTE AUTO 0.07 K/mm3 (0.00-0.23); BASOPHILS PERCENT AUTO 1 % (0-2); EOSINOPHILS PERCENT AUTO 4 % (0-6); Hematocrit 33.5 % (33.0-51.0); Hemoglobin 10.7 g/dL (11.5-16.0); IMMATURE GRAN ABSOLUTE AUTO 0.39 K/mm3 (0.00-0.10); IMMATURE GRAN PERCENT AUTO 3 % (0-1); LYMPHOCYTES ABSOLUTE AUTO 2.06 K/mm3 (0.84-5.20); LYMPHOCYTES PERCENT AUTO 14 % (21-46); MONOCYTES ABSOLUTE AUTO 1.41 K/mm3 (0.16-1.47); MONOCYTES PERCENT AUTO 10 % (4-13); Mean Corpuscular HGB Conc 31.9 g/dL (31.5-36.5); Mean Corpuscular Volume 84 fL (80-100); Mean Platelet Volume 10.7 fL (9.1-12.4); NEUTROPHILS ABSOLUTE AUTO 9.87 K/mm3 (1.96-9.15); NEUTROPHILS PERCENT AUTO 69 % (41-73); Platelet Count 301 K/mm3 (150-400); RDW Coefficient Variation 12.8 % (11.7-14.2); Red Blood Cell Count 3.97 M/mm3 (3.80-5.20)
[2020-12-12 05:52] LABS: Alanine Aminotransfer (ALT/SGP 16 U/L (12-78); Albumin, Blood 2.6 g/dL (3.4-5.0); Albumin/Globulin Ratio 0.7 (0.8-1.8); Alk Phos 284 U/L (50-136); Anion Gap 7 mmol/L (6-16); Aspartate Aminotrans (AST/SGOT 8 U/L (12-37); Bilirubin, Total 0.2 mg/dL (0.1-1.0); Blood Urea Nitrogen 15 mg/dL (8-24); Bun/Creatinine Ratio 15.8 (12.0-20.0); CO2, Blood 21 mmol/L (21-32); Calcium, Blood 9.3 mg/dL (8.5-10.1); Chloride, Blood 109 mmol/L (98-108); Creatinine, Blood 0.95 mg/dL (0.40-1.00); Globulin, Blood 3.8 g/dL (2.2-4.0); Glomerular Filtration Rate >60 (60-); Glucose, Blood 78 mg/dL (70-99); Potassium, Blood 4.1 mmol/L (3.5-5.5); Sodium, Blood 137 mmol/L (136-145); Total Protein, Blood 6.4 g/dL (6.4-8.2)
--- NOTE | 2020-12-12 08:48 | NUR ---
PT HAD JUICE FOR BREAKFAST, STATES SHE IS NOT VERY HUNGRY. ENCOURAGED TO HAVE PROTEIN AND FAT WITH THAT WELL.
[2020-12-13 09:32] LABS: Hematocrit 33.1 % (33.0-51.0); Hemoglobin 10.9 g/dL (11.5-16.0); Mean Corpuscular HGB 27.3 pg (26.0-34.0); Mean Corpuscular HGB Conc 32.9 g/dL (31.5-36.5); Mean Corpuscular Volume 83 fL (80-100); Mean Platelet Volume 10.5 fL (9.1-12.4); Platelet Count 298 K/mm3 (150-400); RDW Coefficient Variation 12.8 % (11.7-14.2); RDW Standard Deviation 38.7 fL (35.1-46.3); White Blood Cell Count 12.54 K/mm3 (4.00-11.30)
[2020-12-13 09:52] LABS: Alanine Aminotransfer (ALT/SGP 16 U/L (12-78); Albumin, Blood 2.7 g/dL (3.4-5.0); Albumin/Globulin Ratio 0.7 (0.8-1.8); Alk Phos 297 U/L (50-136); Anion Gap 7 mmol/L (6-16); Aspartate Aminotrans (AST/SGOT 8 U/L (12-37); Bilirubin, Total 0.2 mg/dL (0.1-1.0); Blood Urea Nitrogen 15 mg/dL (8-24); Bun/Creatinine Ratio 15.4 (12.0-20.0); CO2, Blood 21 mmol/L (21-32); Calcium, Blood 8.9 mg/dL (8.5-10.1); Chloride, Blood 108 mmol/L (98-108); Creatinine, Blood 0.97 mg/dL (0.40-1.00); Glomerular Filtration Rate >60 (60-); Glucose, Blood 87 mg/dL (70-99); Potassium, Blood 4.1 mmol/L (3.5-5.5); Sodium, Blood 136 mmol/L (136-145); Total Protein, Blood 6.7 g/dL (6.4-8.2)
[2020-12-14 10:26] LABS: Hematocrit 33.9 % (33.0-51.0); Hemoglobin 11.2 g/dL (11.5-16.0); Mean Corpuscular HGB 27.1 pg (26.0-34.0); Mean Corpuscular Volume 82 fL (80-100); Mean Platelet Volume 10.9 fL (9.1-12.4); Platelet Count 306 K/mm3 (150-400); RDW Coefficient Variation 12.9 % (11.7-14.2); RDW Standard Deviation 38.3 fL (35.1-46.3); Red Blood Cell Count 4.13 M/mm3 (3.80-5.20); White Blood Cell Count 13.63 K/mm3 (4.00-11.30)
[2020-12-14 10:44] LABS: Alanine Aminotransfer (ALT/SGP 17 U/L (12-78); Albumin, Blood 2.7 g/dL (3.4-5.0); Albumin/Globulin Ratio 0.7 (0.8-1.8); Alk Phos 308 U/L (50-136); Anion Gap 8 mmol/L (6-16); Aspartate Aminotrans (AST/SGOT 12 U/L (12-37); Bilirubin, Total 0.3 mg/dL (0.1-1.0); Blood Urea Nitrogen 15 mg/dL (8-24); CO2, Blood 19 mmol/L (21-32); Calcium, Blood 9.2 mg/dL (8.5-10.1); Chloride, Blood 107 mmol/L (98-108); Glomerular Filtration Rate >60 (60-); Glucose, Blood 110 mg/dL (70-99); Sodium, Blood 134 mmol/L (136-145); Total Protein, Blood 6.7 g/dL (6.4-8.2)
--- NOTE | 2020-12-14 18:38 | NUR ---
RESTING AND WATCHING TV. NO COMPLAINTS. REPORT WILL BE GIVEN TO ONCOMING SHIFT.
[2020-12-15 09:36] LABS: Hematocrit 35.4 % (33.0-51.0); Hemoglobin 11.3 g/dL (11.5-16.0); Mean Corpuscular HGB 26.7 pg (26.0-34.0); Mean Corpuscular HGB Conc 31.9 g/dL (31.5-36.5); Mean Corpuscular Volume 84 fL (80-100); Mean Platelet Volume 10.8 fL (9.1-12.4); Platelet Count 320 K/mm3 (150-400); RDW Standard Deviation 39.1 fL (35.1-46.3); Red Blood Cell Count 4.23 M/mm3 (3.80-5.20); White Blood Cell Count 11.78 K/mm3 (4.00-11.30)
[2020-12-15 09:37] LABS: Alanine Aminotransfer (ALT/SGP 19 U/L (12-78); Albumin, Blood 2.8 g/dL (3.4-5.0); Albumin/Globulin Ratio 0.7 (0.8-1.8); Alk Phos 314 U/L (50-136); Anion Gap 5 mmol/L (6-16); Aspartate Aminotrans (AST/SGOT 9 U/L (12-37); Bilirubin, Total 0.2 mg/dL (0.1-1.0); Blood Urea Nitrogen 16 mg/dL (8-24); Bun/Creatinine Ratio 16.1 (12.0-20.0); CO2, Blood 23 mmol/L (21-32); Calcium, Blood 9.1 mg/dL (8.5-10.1); Chloride, Blood 106 mmol/L (98-108); Creatinine, Blood 0.99 mg/dL (0.40-1.00); Globulin, Blood 4.2 g/dL (2.2-4.0); Glomerular Filtration Rate >60 (60-); Glucose, Blood 91 mg/dL (70-99); Potassium, Blood 4.3 mmol/L (3.5-5.5); Sodium, Blood 134 mmol/L (136-145)
--- NOTE | 2020-12-15 13:20 | NUR ---
REPORT TO WOODY SAMS
--- NOTE | 2020-12-15 13:30 | NUR ---
PT HAS NOT HAD A BM SINCE Tuesday12/09/20, OFFERED PT MILK OF MAG AND COLACE THIS AM AND PT REFUSED THIS MORNING.
--- NOTE | 2020-12-15 14:49 | NUR ---
ASSUMED CARE OF PT, BOWEL CARE MEDS GIVEN
[2020-12-16 05:45] LABS: Hematocrit 33.8 % (33.0-51.0); Hemoglobin 10.9 g/dL (11.5-16.0); Mean Corpuscular HGB 26.8 pg (26.0-34.0); Mean Corpuscular HGB Conc 32.2 g/dL (31.5-36.5); Mean Corpuscular Volume 83 fL (80-100); Mean Platelet Volume 10.8 fL (9.1-12.4); Platelet Count 312 K/mm3 (150-400); RDW Coefficient Variation 13.2 % (11.7-14.2); RDW Standard Deviation 39.1 fL (35.1-46.3); Red Blood Cell Count 4.07 M/mm3 (3.80-5.20); White Blood Cell Count 13.38 K/mm3 (4.00-11.30)
[2020-12-16 06:12] LABS: Alanine Aminotransfer (ALT/SGP 16 U/L (12-78); Albumin, Blood 2.6 g/dL (3.4-5.0); Albumin/Globulin Ratio 0.6 (0.8-1.8); Alk Phos 316 U/L (50-136); Anion Gap 7 mmol/L (6-16); Aspartate Aminotrans (AST/SGOT 14 U/L (12-37); Bilirubin, Total 0.1 mg/dL (0.1-1.0); Blood Urea Nitrogen 17 mg/dL (8-24); CO2, Blood 21 mmol/L (21-32); Calcium, Blood 9.2 mg/dL (8.5-10.1); Chloride, Blood 105 mmol/L (98-108); Creatinine, Blood 1.06 mg/dL (0.40-1.00); Globulin, Blood 4.1 g/dL (2.2-4.0); Glomerular Filtration Rate >60 (60-); Glucose, Blood 80 mg/dL (70-99); Potassium, Blood 4.2 mmol/L (3.5-5.5); Sodium, Blood 133 mmol/L (136-145); Total Protein, Blood 6.7 g/dL (6.4-8.2)
[2020-12-16 16:09] LABS: PCO2 Cord - Arterial 57.4 mmHg (40-50); PO2 Cord - Arterial 18.3 mmHg (16-20); pH Cord - Arterial 7.26 (7.28-7.35)
[2020-12-16 16:16] LABS: PCO2 Cord - Venous 50.5 mmHg (40-50); PO2 Cord - Venous 24.9 mmHg (28-32); pH Umbilical Cord - Venous 7.31 (7.26-7.35)
--- NOTE | 2020-12-16 16:22 | NUR ---
12/16/20 1622 Ivon Jean 1536 PT ARRIVE TI [facility] OR [facility] CAT[facility]TER INTACT DRAINING CLEAR YELLOW URINE
[2020-12-16 20:29] LABS: BASOPHILS ABSOLUTE AUTO 0.06 K/mm3 (0.00-0.23); BASOPHILS PERCENT AUTO 0 % (0-2); EOSINOPHILS ABSOLUTE AUTO 0.02 K/mm3 (0.00-0.68); EOSINOPHILS PERCENT AUTO 0 % (0-6); Hematocrit 27.7 % (33.0-51.0); Hemoglobin 9.2 g/dL (11.5-16.0); IMMATURE GRAN ABSOLUTE AUTO 0.36 K/mm3 (0.00-0.10); IMMATURE GRAN PERCENT AUTO 1 % (0-1); LYMPHOCYTES ABSOLUTE AUTO 1.37 K/mm3 (0.84-5.20); LYMPHOCYTES PERCENT AUTO 5 % (21-46); MONOCYTES ABSOLUTE AUTO 1.12 K/mm3 (0.16-1.47); MONOCYTES PERCENT AUTO 4 % (4-13); Mean Corpuscular HGB 27.5 pg (26.0-34.0); Mean Corpuscular HGB Conc 33.2 g/dL (31.5-36.5); Mean Corpuscular Volume 83 fL (80-100); Mean Platelet Volume 10.6 fL (9.1-12.4); NEUTROPHILS ABSOLUTE AUTO 25.35 K/mm3 (1.96-9.15); NEUTROPHILS PERCENT AUTO 90 % (41-73); Platelet Count 326 K/mm3 (150-400); RDW Standard Deviation 39.2 fL (35.1-46.3); Red Blood Cell Count 3.34 M/mm3 (3.80-5.20); White Blood Cell Count 28.28 K/mm3 (4.00-11.30)
[2020-12-17 05:29] LABS: Hematocrit 23.6 % (33.0-51.0); Hemoglobin 7.3 g/dL (11.5-16.0); Mean Corpuscular HGB 26.6 pg (26.0-34.0); Mean Corpuscular HGB Conc 30.9 g/dL (31.5-36.5); Mean Corpuscular Volume 86 fL (80-100); Mean Platelet Volume 10.9 fL (9.1-12.4); Platelet Count 285 K/mm3 (150-400); RDW Coefficient Variation 13.2 % (11.7-14.2); RDW Standard Deviation 40.6 fL (35.1-46.3); Red Blood Cell Count 2.74 M/mm3 (3.80-5.20); White Blood Cell Count 24.19 K/mm3 (4.00-11.30)
[2020-12-17 05:58] LABS: Albumin, Blood 2.1 g/dL (3.4-5.0); Albumin/Globulin Ratio 0.7 (0.8-1.8); Bilirubin, Total 0.1 mg/dL (0.1-1.0); Bun/Creatinine Ratio 13.7 (12.0-20.0); Calcium, Blood 8.5 mg/dL (8.5-10.1); Creatinine, Blood 1.17 mg/dL (0.40-1.00); Globulin, Blood 3.2 g/dL (2.2-4.0); Potassium, Blood 4.2 mmol/L (3.5-5.5); Total Protein, Blood 5.3 g/dL (6.4-8.2)
--- NOTE | 2020-12-17 18:05 | NUR ---
12/17/20 1730 UP TO AND DOWN TO NURSERY FOR 30 MINUTES TO HOLD AND FEED BABY. TOLERATED VERY WELL. RETURNED TO ROOM, AND MEDICATED FOR PAIN
[2020-12-18 05:39] LABS: Hematocrit 20.8 % (33.0-51.0); Hemoglobin 6.6 g/dL (11.5-16.0); Mean Corpuscular HGB 27.2 pg (26.0-34.0); Mean Corpuscular HGB Conc 31.7 g/dL (31.5-36.5); Mean Corpuscular Volume 86 fL (80-100); Mean Platelet Volume 10.4 fL (9.1-12.4); Platelet Count 273 K/mm3 (150-400); RDW Coefficient Variation 13.6 % (11.7-14.2); Red Blood Cell Count 2.43 M/mm3 (3.80-5.20); White Blood Cell Count 15.94 K/mm3 (4.00-11.30)
[2020-12-18 05:55] LABS: Anion Gap 4 mmol/L (6-16); Blood Urea Nitrogen 17 mg/dL (8-24); Bun/Creatinine Ratio 14.8 (12.0-20.0); CO2, Blood 24 mmol/L (21-32); Calcium, Blood 8.7 mg/dL (8.5-10.1); Chloride, Blood 106 mmol/L (98-108); Creatinine, Blood 1.15 mg/dL (0.40-1.00); Glomerular Filtration Rate >60 (60-); Glucose, Blood 73 mg/dL (70-99); Potassium, Blood 3.7 mmol/L (3.5-5.5); Sodium, Blood 134 mmol/L (136-145)
[2020-12-19 04:59] LABS: Hematocrit 21.3 % (33.0-51.0); Hemoglobin 6.8 g/dL (11.5-16.0); Mean Corpuscular HGB 27.1 pg (26.0-34.0); Mean Corpuscular HGB Conc 31.9 g/dL (31.5-36.5); Mean Corpuscular Volume 85 fL (80-100); Platelet Count 277 K/mm3 (150-400); RDW Standard Deviation 42.8 fL (35.1-46.3); Red Blood Cell Count 2.51 M/mm3 (3.80-5.20); White Blood Cell Count 14.68 K/mm3 (4.00-11.30)
[2020-12-19 05:24] LABS: Anion Gap 4 mmol/L (6-16); Blood Urea Nitrogen 13 mg/dL (8-24); Bun/Creatinine Ratio 12.7 (12.0-20.0); CO2, Blood 27 mmol/L (21-32); Calcium, Blood 8.7 mg/dL (8.5-10.1); Chloride, Blood 105 mmol/L (98-108); Creatinine, Blood 1.02 mg/dL (0.40-1.00); Glomerular Filtration Rate >60 (60-); Glucose, Blood 89 mg/dL (70-99); Potassium, Blood 3.8 mmol/L (3.5-5.5); Sodium, Blood 136 mmol/L (136-145)
[2020-12-19] MEDS ORDERED: OXYC5 PO (10:21)
[2020-12-19 15:17] LABS: Hematocrit 24.9 % (33.0-51.0); Hemoglobin 8.3 g/dL (11.5-16.0); Mean Corpuscular HGB Conc 33.3 g/dL (31.5-36.5); Mean Corpuscular Volume 84 fL (80-100); Mean Platelet Volume 9.9 fL (9.1-12.4); Platelet Count 280 K/mm3 (150-400); RDW Coefficient Variation 14.2 % (11.7-14.2); Red Blood Cell Count 2.96 M/mm3 (3.80-5.20); White Blood Cell Count 14.47 K/mm3 (4.00-11.30)
[2020-12-19 15:28] LABS: BASOPHILS PERCENT MAN 0 % (0-2); TOTAL CELLS COUNTED 100
[2020-12-19 15:46] LABS: EOSINOPHILS ABSOLUTE MAN 0.28 K/mm3 (0.00-0.68); EOSINOPHILS PERCENT MAN 2 % (0-6); LYMPHOCYTES ABSOLUTE MAN 2.45 K/mm3 (0.84-5.20); LYMPHOCYTES PERCENT MAN 17 % (21-46); MONOCYTES ABSOLUTE MAN 0.28 K/mm3 (0.16-1.47); MONOCYTES PERCENT MAN 2 % (4-13); SEG NEUTROPHILS PERCENT MAN 79 % (41-73)
[2020-12-19 15:52] LABS: BAND PERCENT MAN 0 % (0-8); NEUTROPHILS ABSOLUTE MAN 11.43 K/mm3 (1.96-9.15)
--- NOTE | 2020-12-19 16:30 | NUR ---
DISCHARGE SUMMARY PT DISCHARGED HOME WITH S/O AND NB VIA IND AMBULATION FROM UNIT AT 1625 TODAY. SCRIPTS, PERSONAL BELONGINGS, D/C INSTRUCTIONS, AND SCHEDULED PPFU PROVIDED PRIOR TO DISCHARGE. IV CATH REMOVED WITH TIP INTACT. PT REPORTS PAIN MANAGED WITH PO MEDICATION. PT VERBALIZED UNDERSTANDING OF DC INSTRUCTIONS AND DECLINED ANY QUESTIONS OR CONCERNS. ENCOURAGED TO CALL [facility] OR HEALTHCARE PROVIDER IF ANY SHOULD ARISE.
--- NOTE | 2020-12-24 10:10 | NUR ---
LATE ENTRY OR SURGICAL CHECKLIST PER EMR - [employer] [facility] RN
--- NOTE | 2020-12-26 16:57 | NUR ---
LATE ENTRY ADDED EBL PER DR ALICEA
== END 2020-12-19 16:25 | disposition home or self-care (01) | DRG 783 ==
LOC: OBS 16:15 → BC 16:16 → OBS 16:25 → BC 16:29
PROVIDERS: Obstetrics & Gynecology; ADMIT Obstetrics & Gynecology
PROC: 10D00Z1 Extraction of Products of Conception, Low, Open Approach (ICD-10-PCS; principal; 2020-12-17)
PROC: 30233N1 Transfusion of Nonautologous Red Blood Cells into Peripheral Vein, Percutaneous Approach (ICD-10-PCS; 2020-12-17)
PROC: 0UT70ZZ Resection of Bilateral Fallopian Tubes, Open Approach (ICD-10-PCS; 2020-12-17)
DX: O60.13X0 Preterm labor second trimester with preterm delivery third trimester, not applicable or unspecified (principal); O90.4 Postpartum acute kidney failure; D62 Acute posthemorrhagic anemia; O76 Abnormality in fetal heart rate and rhythm complicating labor and delivery; O24.92 Unspecified diabetes mellitus in childbirth; Z3A.36 36 weeks gestation of pregnancy; Z37.0 Single live birth; O99.02 Anemia complicating childbirth; O10.22 Pre-existing hypertensive chronic kidney disease complicating childbirth; I12.9 Hypertensive chronic kidney disease with stage 1 through stage 4 chronic kidney disease, or unspecified chronic kidney disease; N18.1 Chronic kidney disease, stage 1; O99.344 Other mental disorders complicating childbirth; F31.9 Bipolar disorder, unspecified; O99.62 Diseases of the digestive system complicating childbirth; K21.9 Gastro-esophageal reflux disease without esophagitis; Z98.890 Other specified postprocedural states; Z87.891 Personal history of nicotine dependence; Z88.5 Allergy status to narcotic agent; Z79.899 Other long term (current) drug therapy; E11.22 Type 2 diabetes mellitus with diabetic chronic kidney disease; O99.892 Other specified diseases and conditions complicating childbirth
CPT/HCPCS: 36415; 36416; 36430; 51702; 59025; 80048; 80053; 80178; 82803; 82947; 85007; 85025; 85027; 86850; 86900; 86901; 86923; 87071; 87075; 87205; 88302; 88307; 94660; A9270; C9113; J0456; J0690; J1100; J1170; J1885; J2001; J2210; J2370; J2405; J2590; J2704; J2765; J3010; J7050; J7120; P9016; U0004

== ENCOUNTER → 2021-10-05 | Outpatient (CLI) | payer OTHER ==
[~2021-10-05] MED LIST changes: +BUSP10 PO; +DESV50 PO; +OXYC5 PO; +TRAZ50 PO
[2021-10-05 19:38] LABS: Free Thyroxine 0.8 ng/dL (0.70-1.60)
[2021-10-05 19:40] LABS: Thyroid Stimulating Hormone 1.41 uIU/mL (0.360-4.800)
== END ==
LOC: LAB SHORT 11:40
PROVIDERS: Registered Nurse Community Health
DX: E66.3 Overweight (principal)
CPT/HCPCS: 83036; 84439; 84443

== ENCOUNTER 2022-09-23 20:02 | Emergency (ER) | payer OTHER ==
[~2022-09-23] VITALS: Ht 157.5 cm; Wt 77.1 kg
[2022-09-23 20:40] LABS: BASOPHILS ABSOLUTE AUTO 0.04 K/mm3 (0.00-0.23); BASOPHILS PERCENT AUTO 0 % (0-2); EOSINOPHILS PERCENT AUTO 3 % (0-6); Hematocrit 35.3 % (33.0-51.0); Hemoglobin 12.2 g/dL (11.5-16.0); IMMATURE GRAN ABSOLUTE AUTO 0.07 K/mm3 (0.00-0.10); IMMATURE GRAN PERCENT AUTO 1 % (0-1); LYMPHOCYTES ABSOLUTE AUTO 1.84 K/mm3 (0.84-5.20); LYMPHOCYTES PERCENT AUTO 16 % (21-46); MONOCYTES ABSOLUTE AUTO 1.25 K/mm3 (0.16-1.47); MONOCYTES PERCENT AUTO 11 % (4-13); Mean Corpuscular HGB 29.5 pg (26.0-34.0); Mean Corpuscular HGB Conc 34.6 g/dL (31.5-36.5); Mean Corpuscular Volume 85 fL (80-100); Mean Platelet Volume 10.1 fL (9.1-12.4); NEUTROPHILS ABSOLUTE AUTO 7.81 K/mm3 (1.96-9.15); NEUTROPHILS PERCENT AUTO 69 % (41-73); Platelet Count 296 K/mm3 (150-400); RDW Coefficient Variation 11.5 % (11.7-14.2); RDW Standard Deviation 35.2 fL (35.1-46.3); Red Blood Cell Count 4.14 M/mm3 (3.80-5.20); White Blood Cell Count 11.31 K/mm3 (4.00-11.30)
[2022-09-23 20:45] LABS: Source, Urine Clean Catch
[2022-09-23 20:56] LABS: Albumin, Blood 3.7 g/dL (3.4-5.0); Albumin/Globulin Ratio 0.9 (0.8-1.8); Bilirubin, Total 0.2 mg/dL (0.1-1.0); Bun/Creatinine Ratio 11.7 (12.0-20.0); Calcium, Blood 9.2 mg/dL (8.5-10.1); Creatinine, Blood 1.45 mg/dL (0.40-1.00); Potassium, Blood 3.7 mmol/L (3.5-5.5); Total Protein, Blood 7.7 g/dL (6.4-8.2)
[2022-09-23 21:04] LABS: Bilirubin, Urine Neg (Neg); Blood, Urine 5+ (Neg); Glucose Qualitative, Urine Neg (Neg); Ketones, Urine Neg (Neg); Leukocyte Esterase, Urine 3+ (Neg); Nitrite, Urine Neg (Neg); Protein, Urine 3+ (Neg); Urobilinogen, Urine NORM (Normal); pH, Urine 6.5 (5.0-8.0)
[2022-09-23 21:16] LABS: Appearance, Urine Hazy (Clear); Color, Urine Pale Yellow (P-Yellow)
[2022-09-23 21:19] LABS: Bacteria Mod /hpf; Squamous Epithelial Cells Few /hpf (Few)
[2022-09-23] MEDS ORDERED: CEPH500 PO (22:44)
[2022-09-23] MEDS ORDERED: ONDA4ODT MM (22:56)
== END 2022-09-23 23:02 | disposition home or self-care (01) ==
LOC: ER 20:02
PROVIDERS: Student in an Organized Health Care Education/Training Program
DX: N39.0 Urinary tract infection, site not specified (principal); N17.9 Acute kidney failure, unspecified; I10 Essential (primary) hypertension; Z88.2 Allergy status to sulfonamides; Z88.5 Allergy status to narcotic agent; Z79.899 Other long term (current) drug therapy; Z87.891 Personal history of nicotine dependence
CPT/HCPCS: 36415; 80053; 81001; 81025; 83605; 85025; 87086; 96361; 96374; 96375; 99283-25; J0696; J2270; J7120

== ENCOUNTER → 2022-12-02 | Outpatient (CLI) | payer OTHER ==
[2022-12-02 17:54] LABS: BASOPHILS ABSOLUTE AUTO 0.04 K/mm3 (0.00-0.23); BASOPHILS PERCENT AUTO 0 % (0-2); EOSINOPHILS ABSOLUTE AUTO 0.54 K/mm3 (0.00-0.68); EOSINOPHILS PERCENT AUTO 5 % (0-6); Hematocrit 38.6 % (33.0-51.0); IMMATURE GRAN ABSOLUTE AUTO 0.08 K/mm3 (0.00-0.10); IMMATURE GRAN PERCENT AUTO 1 % (0-1); LYMPHOCYTES ABSOLUTE AUTO 3.28 K/mm3 (0.84-5.20); LYMPHOCYTES PERCENT AUTO 29 % (21-46); MONOCYTES PERCENT AUTO 9 % (4-13); Mean Corpuscular HGB Conc 33.7 g/dL (31.5-36.5); Mean Corpuscular Volume 83 fL (80-100); Mean Platelet Volume 10.9 fL (9.1-12.4); NEUTROPHILS ABSOLUTE AUTO 6.38 K/mm3 (1.96-9.15); NEUTROPHILS PERCENT AUTO 56 % (41-73); Platelet Count 320 K/mm3 (150-400); RDW Coefficient Variation 12.2 % (11.7-14.2); RDW Standard Deviation 36.9 fL (35.1-46.3); Red Blood Cell Count 4.65 M/mm3 (3.80-5.20); White Blood Cell Count 11.32 K/mm3 (4.00-11.30)
[2022-12-02 22:20] LABS: Bilirubin, Total 0.4 mg/dL (0.1-1.0); Calcium, Blood 9.7 mg/dL (8.5-10.1); Creatinine, Blood 1.19 mg/dL (0.40-1.00); Globulin, Blood 4.2 g/dL (2.2-4.0); Percent Saturation 8.9 % (15.0-50.0); Potassium, Blood 4.2 mmol/L (3.5-5.5); Total Protein, Blood 8.2 g/dL (6.4-8.2)
== END | disposition home or self-care (01) ==
LOC: LAB SHORT 14:17 → LAB 14:17
PROVIDERS: Nurse Practitioner Family
DX: D50.9 Iron deficiency anemia, unspecified (principal)
CPT/HCPCS: 80053; 82728; 83540; 83550; 85025

== ENCOUNTER → 2023-06-05 | Outpatient (CLI) | payer OTHER ==
[2023-06-05 12:49] LABS: BASOPHILS ABSOLUTE AUTO 0.03 K/mm3 (0.00-0.23); BASOPHILS PERCENT AUTO 0 % (0-2); EOSINOPHILS ABSOLUTE AUTO 0.32 K/mm3 (0.00-0.68); EOSINOPHILS PERCENT AUTO 3 % (0-6); Hematocrit 41.7 % (33.0-51.0); Hemoglobin 14.2 g/dL (11.5-16.0); IMMATURE GRAN ABSOLUTE AUTO 0.04 K/mm3 (0.00-0.10); IMMATURE GRAN PERCENT AUTO 0 % (0-1); LYMPHOCYTES ABSOLUTE AUTO 1.87 K/mm3 (0.84-5.20); LYMPHOCYTES PERCENT AUTO 18 % (21-46); MONOCYTES ABSOLUTE AUTO 1.31 K/mm3 (0.16-1.47); MONOCYTES PERCENT AUTO 12 % (4-13); Mean Corpuscular HGB 26.6 pg (26.0-34.0); Mean Corpuscular HGB Conc 34.1 g/dL (31.5-36.5); Mean Corpuscular Volume 78 fL (80-100); Mean Platelet Volume 10.9 fL (9.1-12.4); NEUTROPHILS ABSOLUTE AUTO 7.05 K/mm3 (1.96-9.15); NEUTROPHILS PERCENT AUTO 66 % (41-73); Platelet Count 302 K/mm3 (150-400); RDW Coefficient Variation 12.6 % (11.7-14.2); RDW Standard Deviation 35.5 fL (35.1-46.3); Red Blood Cell Count 5.33 M/mm3 (3.80-5.20); White Blood Cell Count 10.62 K/mm3 (4.00-11.30)
[2023-06-05 13:05] LABS: Albumin, Blood 3.8 g/dL (3.4-5.0); Albumin/Globulin Ratio 0.8 (0.8-1.8); Bilirubin, Total 0.2 mg/dL (0.1-1.0); Bun/Creatinine Ratio 20.6 (12.0-20.0); Calcium, Blood 9.6 mg/dL (8.5-10.1); Creatinine, Blood 1.02 mg/dL (0.40-1.00); Globulin, Blood 4.6 g/dL (2.2-4.0); Potassium, Blood 3.6 mmol/L (3.5-5.5); Total Protein, Blood 8.4 g/dL (6.4-8.2)
== END | disposition home or self-care (01) ==
LOC: LAB SHORT 11:30 → LAB 11:30
PROVIDERS: Physician Assistant
DX: R07.89 Other chest pain (principal)
CPT/HCPCS: 80053; 84484; 85025; 85379

== ENCOUNTER → 2023-10-31 | Outpatient (CLI) | payer OTHER ==
[2023-11-03 11:19] LABS: APTIMA MEDIA TYPE Unisex Swab; C. TRACHOMATIS BY TMA Negative (Negative); N. GONORRHOEAE BY TMA Negative (Negative); SPECIMEN SOURCE Cervical
== END | disposition home or self-care (01) ==
LOC: LAB 16:14 → LAB SHORT 16:14
PROVIDERS: Advanced Practice Midwife
DX: Z11.3 Encounter for screening for infections with a predominantly sexual mode of transmission (principal)
CPT/HCPCS: 87491; 87591

== ENCOUNTER → 2024-03-06 | Outpatient (CLI) | payer OTHER | END | disposition home or self-care (01) | LOC: LAB SHORT 13:25 → LAB 13:25 | DX: N87.0 Mild cervical dysplasia (principal) | CPT/HCPCS: 88305 ==

== ENCOUNTER 2024-04-14 16:55 | Emergency (ER) | payer OTHER ==
[~2024-04-14] VITALS: Ht 157.5 cm; Wt 81.7 kg
[2024-04-14 19:17] VITALS: BP 171/130
[2024-04-14] MEDS ORDERED: RX Prepack Albuterol 1 PREPACK/6.7 GM INH UD ONE (19:35)
[2024-04-14] MEDS ORDERED: Prednisone20 MG PO (19:37)
[2024-04-14] MEDS ORDERED: BENZ100A PO (19:37)
== END 2024-04-14 19:45 | disposition home or self-care (01) ==
LOC: ER 16:55
DX: J40 Bronchitis, not specified as acute or chronic (principal); Z88.5 Allergy status to narcotic agent; Z88.2 Allergy status to sulfonamides; Z79.899 Other long term (current) drug therapy; I10 Essential (primary) hypertension; Z87.891 Personal history of nicotine dependence
CPT/HCPCS: 71046; 99283-25; A9270

== ENCOUNTER → 2024-05-08 | Outpatient (CLI) | payer OTHER ==
[~2024-05-08] MED LIST changes: +Prednisone20 MG PO
== END | disposition home or self-care (01) ==
LOC: LAB 15:13 → LAB SHORT 15:13
DX: E05.90 Thyrotoxicosis, unspecified without thyrotoxic crisis or storm (principal)
CPT/HCPCS: 36415; 84443